=== PATIENT | female | born 1970 | race Caucasian/White ===

== ENCOUNTER 2020-07-23 20:45 | Emergency (ER) | payer SELFPAY ==
--- NOTE | 2020-07-23 20:57 | NUR ---
NOT IN LOBBY WHEN CALLED
--- NOTE | 2020-07-23 21:06 | NUR ---
NOT IN LOBBY WHEN CALLED
--- NOTE | 2020-07-23 21:15 | NUR ---
NOT IN LOBBY WHEN CALLED
== END 2020-07-23 21:16 | disposition left against medical advice (07) ==
LOC: ED 20:55
DX: R09.89 Other specified symptoms and signs involving the circulatory and respiratory systems (principal); Z53.21 Procedure and treatment not carried out due to patient leaving prior to being seen by health care provider

== ENCOUNTER 2020-07-23 21:58 | Emergency (ER) | payer OTHER ==
[~2020-07-23] VITALS: Ht 170.2 cm; Wt 74.7 kg
--- NOTE | 2020-07-23 22:20 | NUR ---
THIS IS A 49Y F THAT COMES IN FOR SOME PORK RIB BEING STUCK IN HER THROAT. PT STS THIS HAS HAPPENED BEFORE WITH STEAK. BUT RESOLVED ON ITS OWN. PT CHANGED INTO GOWN CONNECTED TO ALL MONITORING. PT IS SPITTING INTO EMISIS BAG SHE SAYS SHE CANNOT SWALLOW HER SPIT. PT IS ABLE TO SPEAK IN FULL SENTENCES.
[2020-07-23] MEDS ORDERED: PROPOFOL 10 MG/ML, 20ML ONE ×2 (23:27→23:53)
[2020-07-23] MEDS ORDERED: PROPOFOL 10 MG/ML, 20ML IVPush ONE (23:30)
--- NOTE | 2020-07-23 23:32 | NUR ---
TIMEOUT CALLED AT THIS TIME, CONSENT OBTAINED, PT AGREES TO POC AND VERBALIZES, PT CONNECTED TO ALL MONITORING
[2020-07-24] MEDS ORDERED: PROPOFOL 10 MG/ML, 20ML ONE ×2 (00:08→00:21)
--- NOTE | 2020-07-24 00:24 | NUR ---
END OF PROCEEDURE, PT TOLERATED WELL, PT RECIEVED A TOTAL OF 800MG OF PROPOFOL BP REMAINED 120'S/70'S THROUGHOUT. SEVERAL LARGE PIECES OF MEAT WERE REMOVED FROM PT ESOPHAGUS.
--- NOTE | 2020-07-24 00:36 | NUR ---
PT NOW ALERT AND INTERACTING WITH STAFF HOWEVER SLIGHTLY DROWSY.
--- NOTE | 2020-07-24 00:45 | NUR ---
PT TALKING TO DAUGHTER ON PHONE AND DAUGHTER WILL DRIVER STARTING GATE SHORTLY
[2020-07-24 01:24] VITALS: BP 123/79
--- NOTE | 2020-07-24 01:25 | NUR ---
FLOAT RN: PT RESTING IN ROOM. NO ACUTE DISTRESS NOTED. CALL LIGHT IN PLACE. WILL CONTINUE TO MONITOR WHILE PRIMARY RN IS ON BREAK.
== END 2020-07-24 01:51 | disposition home or self-care (01) ==
LOC: ED 07-24 01:30
DX: T18.128A Food in esophagus causing other injury, initial encounter (principal); X58.XXXA Exposure to other specified factors, initial encounter; Y93.89 Activity, other specified; Y92.89 Other specified places as the place of occurrence of the external cause; Y99.8 Other external cause status
CPT/HCPCS: 99152; 99153; 99285